=== PATIENT | female | born 1965 | race Caucasian/White ===

== ENCOUNTER 2016-10-25 11:41 | Emergency (ER) | payer SELFPAY ==
[~2016-10-25] VITALS: Ht 167.6 cm; Wt 119.0 kg
[~2016-10-25 11:41] MED LIST: APIX5TAB PO; LEVO75TA5 PO; MELO-184 PO
[2016-10-25] MEDS ORDERED: SODIUM CHLORIDE FLUSH 10ML SYR IVF ONE (12:00)
[2016-10-25] MEDS ORDERED: ASPIRIN 81 MG TABLET CHEW PO ONE (12:00)
[2016-10-25] MEDS ORDERED: ASPIRIN 81 MG TABLET CHEW ONE (12:22)
[2016-10-25 12:57] LABS: BLOOD UREA NITROGEN 7 mg/dL (7-18)
[2016-10-25 13:00] LABS: ASPARTATE AMINO TRANSFERASE 10 U/L (15-37)
[2016-10-25] MEDS ORDERED: OMNIPAQUE 350 MG/ML, 100ML BOTTLE ONE (14:51)
[2016-10-25 16:32] VITALS: BP 131/89
== END 2016-10-25 16:34 | disposition home or self-care (01) ==
LOC: ED 12:15
DX: R07.89 Other chest pain (principal); Z76.0 Encounter for issue of repeat prescription; I26.99 Other pulmonary embolism without acute cor pulmonale; E07.9 Disorder of thyroid, unspecified; I48.91 Unspecified atrial fibrillation; Z86.718 Personal history of other venous thrombosis and embolism
CPT/HCPCS: 36415; 71010; 71275; 80053; 83690; 84484; 85025; 85610; 85730; 93005; 99285; Q9967

== ENCOUNTER 2016-10-27 16:45 | Emergency (ER) | payer OTHER ==
[~2016-10-27] VITALS: Ht 167.6 cm; Wt 117.8 kg
[2016-10-27 17:12] VITALS: BP 118/70
== END 2016-10-27 17:41 | disposition home or self-care (01) ==
LOC: ED 17:35
DX: I26.99 Other pulmonary embolism without acute cor pulmonale (principal); Z76.0 Encounter for issue of repeat prescription; I48.91 Unspecified atrial fibrillation; Z86.718 Personal history of other venous thrombosis and embolism; F17.210 Nicotine dependence, cigarettes, uncomplicated
CPT/HCPCS: 93005; 99283